=== PATIENT | male | born 1940 | race African-American/Black ===

== ENCOUNTER 2021-12-20 16:51 | Inpatient (IN) | payer OTHER ==
[2021-12-20] MEDS ORDERED: ACETAMINOPHEN 1000 MG/100 ML BAG IVPB ONE (18:25)
[2021-12-20 19:30] LABS: BASO % 0.7 % (0-2.0); EOS % 1.4 % (0-4.5); HEMATOCRIT 23.3 % (35.4-49); HEMOGLOBIN 7.9 GM/dL (11.7-16.9); LYMPH % 13.2 % (8-40); MCH 30.2 pg (25.7-33.7); MCHC 33.8 g/dl (32.0-35.9); MEAN CELL VOLUME 89.4 fl (80-96); MEAN PLT VOLUME 7.7 fl (7.5-11.1); MONO % 15.8 % (3.8-10.2); NEUT % 68.9 % (42.8-82.8); PLATELET COUNT 190 10^3/uL (134-434); RBC 2.61 M/mm3 (4.00-5.60); RDW 16.6 % (11.9-15.9)
[2021-12-20 19:39] LABS: INR 1.18 (0.83-1.09); PROTHROMBIN TIME (PATIENT) 13.6 SEC (9.7-13.0)
[2021-12-20 19:42] LABS: ACTIVATED PTT 37.1 SECONDS (25.2-36.5)
[2021-12-20 19:50] LABS: CALCIUM 8.4 mg/dL (8.5-10.1)
[2021-12-20 19:51] LABS: ALBUMIN 2.4 g/dl (3.4-5.0); BLOOD UREA NITROGEN 18.5 mg/dL (7-18); MAGNESIUM 1.8 mg/dL (1.8-2.4)
[2021-12-20 19:54] LABS: CREATININE 5.2 mg/dL (0.55-1.3); PHOSPHOROUS 2.8 mg/dL (2.5-4.9)
[2021-12-20 19:55] LABS: BILIRUBIN,TOTAL 0.8 mg/dL (0.2-1); TOT PROT 6.4 g/dl (6.4-8.2)
[2021-12-20 20:04] LABS: N-TERMINAL BNP 1759.2 pg/ml (5-450)
[2021-12-20] MEDS ORDERED: ACETAMINOPHEN INJECTION 100 ML IVPB ONE (20:21)
[2021-12-21] MEDS ORDERED: ACETAMINOPHEN 1000 MG/100 ML BAG IVPB PRN (04:38)
[2021-12-21 05:20] VITALS: BMI 24.3
[2021-12-21 11:52] LABS: BASO % 0.7 % (0-2.0); EOS % 5.4 % (0-4.5); HEMATOCRIT 24.9 % (35.4-49); HEMOGLOBIN 8.4 GM/dL (11.7-16.9); LYMPH % 13.5 % (8-40); MCH 30.3 pg (25.7-33.7); MCHC 33.5 g/dl (32.0-35.9); MEAN CELL VOLUME 90.5 fl (80-96); MEAN PLT VOLUME 7.5 fl (7.5-11.1); MONO % 12.6 % (3.8-10.2); NEUT % 67.8 % (42.8-82.8); PLATELET COUNT 224 10^3/uL (134-434); RBC 2.76 M/mm3 (4.00-5.60); WHITE BLOOD COUNT 8.5 K/mm3 (4.0-10.0)
[2021-12-21 12:14] LABS: CALCIUM 8.5 mg/dL (8.5-10.1)
[2021-12-21 12:15] LABS: ALBUMIN 2.5 g/dl (3.4-5.0); BLOOD UREA NITROGEN 24.8 mg/dL (7-18); MAGNESIUM 1.9 mg/dL (1.8-2.4); URIC ACID 3.9 mg/dL (2.6-7.2)
[2021-12-21 12:18] LABS: CREATININE 6.5 mg/dL (0.55-1.3); PHOSPHOROUS 3.3 mg/dL (2.5-4.9)
[2021-12-21 12:20] LABS: BILIRUBIN,TOTAL 0.5 mg/dL (0.2-1)
[2021-12-21] MEDS ORDERED: EPOETIN ALFA-EPBX 10,000 UNIT/ML VIAL SQ ONE (14:39)
[2021-12-21] MEDS: COLCHICINE 0.6 MG CAP PO ONE ×2 (15:05→15:12)
[2021-12-21] MEDS: CALCIUM ACETATE 667 MG CAPSULE (FP) PO SCH ×3 (15:06→22:12)
[2021-12-21] MEDS: DOCUSATE SODIUM 100 MG CAPSULE (FP) PO SCH (22:12)
[2021-12-22 01:16] LABS: EPI CELLS 10 /uL (0-25.1); HYALINE CASTS 0 /uL (0-3.1); PH,URINE 6.5 (5.0-8.0); URINE APPEARANCE CLEAR; URINE BACTERIA 2174 /uL (0-1359); URINE BILIRUBIN NEGATIVE (NEGATIVE); URINE COLOR YELLOW; URINE GLUCOSE (UA) NEGATIVE (NEGATIVE); URINE KETONE NEGATIVE (NEGATIVE); URINE LEUK ESTERASE NEGATIVE (NEGATIVE); URINE NITRITE NEGATIVE (NEGATIVE); URINE PROTEIN 3+ (NEGATIVE); URINE RBC 9 /uL (0-23.9); URINE UROBILINOGEN 0.2 mg/dL (0.2-1.0); URINE WBC 16 /uL (0-25.8)
[2021-12-22] MEDS: CALCIUM ACETATE 667 MG CAPSULE (FP) PO SCH ×3 (08:07→17:19)
[2021-12-22] MEDS: ENOXAPARIN NA (PORCINE) 30 MG/0.3 ML DISP.SYRIN SQ SCH (10:05)
[2021-12-22] MEDS: VITAMIN B COMP W-C 1 EA TABLET (NEPHRO-VITE) PO SCH (10:05)
[2021-12-22] MEDS: CALCITRIOL 0.25 MCG CAPSULE (FP) PO SCH (10:05)
[2021-12-22] MEDS: ATENOLOL 50 MG TABLET (FP) PO SCH (10:06)
[2021-12-22] MEDS ORDERED: SODIUM CHLORIDE 250 ML IV PRN (14:00)
[2021-12-22] MEDS: DOCUSATE SODIUM 100 MG CAPSULE (FP) PO SCH (21:35)
[2021-12-23] MEDS: CALCIUM ACETATE 667 MG CAPSULE (FP) PO SCH ×3 (08:27→17:39)
[2021-12-23] MEDS: ENOXAPARIN NA (PORCINE) 30 MG/0.3 ML DISP.SYRIN SQ SCH (09:12)
[2021-12-23] MEDS: ATENOLOL 50 MG TABLET (FP) PO SCH (09:12)
[2021-12-23] MEDS: VITAMIN B COMP W-C 1 EA TABLET (NEPHRO-VITE) PO SCH (09:12)
[2021-12-23] MEDS: CALCITRIOL 0.25 MCG CAPSULE (FP) PO SCH (09:13)
[2021-12-23] MEDS: DOCUSATE SODIUM 100 MG CAPSULE (FP) PO SCH (21:32)
[2021-12-24] MEDS: CALCIUM ACETATE 667 MG CAPSULE (FP) PO SCH ×3 (09:08→17:58)
[2021-12-24] MEDS: VITAMIN B COMP W-C 1 EA TABLET (NEPHRO-VITE) PO SCH (09:09)
[2021-12-24] MEDS: ATENOLOL 50 MG TABLET (FP) PO SCH (09:09)
[2021-12-24] MEDS: ENOXAPARIN NA (PORCINE) 30 MG/0.3 ML DISP.SYRIN SQ SCH (09:09)
[2021-12-24] MEDS: CALCITRIOL 0.25 MCG CAPSULE (FP) PO SCH (09:09)
[2021-12-24] MEDS ORDERED: SODIUM CHLORIDE 250 ML IV PRN (10:15)
[2021-12-24 13:10] LABS: CALCIUM 8.6 mg/dL (8.5-10.1)
[2021-12-24] MEDS: DOCUSATE SODIUM 100 MG CAPSULE (FP) PO SCH (21:32)
[2021-12-25] MEDS: CALCIUM ACETATE 667 MG CAPSULE (FP) PO SCH ×3 (08:10→17:52)
[2021-12-25] MEDS ORDERED: EPOETIN ALFA-EPBX 10,000 UNIT/ML VIAL SQ ONE (10:00)
[2021-12-25] MEDS: ENOXAPARIN NA (PORCINE) 30 MG/0.3 ML DISP.SYRIN SQ SCH (10:44)
[2021-12-25] MEDS: ATENOLOL 50 MG TABLET (FP) PO SCH (10:45)
[2021-12-25] MEDS: CALCITRIOL 0.25 MCG CAPSULE (FP) PO SCH (10:45)
[2021-12-25] MEDS: VITAMIN B COMP W-C 1 EA TABLET (NEPHRO-VITE) PO SCH (10:45)
[2021-12-25] MEDS: DOCUSATE SODIUM 100 MG CAPSULE (FP) PO SCH (21:45)
[2021-12-26] MEDS: CALCITRIOL 0.25 MCG CAPSULE (FP) PO SCH (10:08)
[2021-12-26] MEDS: ENOXAPARIN NA (PORCINE) 30 MG/0.3 ML DISP.SYRIN SQ SCH (10:08)
[2021-12-26] MEDS: ATENOLOL 50 MG TABLET (FP) PO SCH (10:08)
[2021-12-26] MEDS: VITAMIN B COMP W-C 1 EA TABLET (NEPHRO-VITE) PO SCH (10:08)
[2021-12-26] MEDS: CALCIUM ACETATE 667 MG CAPSULE (FP) PO SCH ×3 (10:08→17:38)
[2021-12-26] MEDS ORDERED: SODIUM CHLORIDE 250 ML IV PRN (18:13)
[2021-12-26] MEDS: DOCUSATE SODIUM 100 MG CAPSULE (FP) PO SCH (21:46)
[2021-12-27] MEDS: CALCIUM ACETATE 667 MG CAPSULE (FP) PO SCH ×3 (08:19→18:59)
[2021-12-27] MEDS: VITAMIN B COMP W-C 1 EA TABLET (NEPHRO-VITE) PO SCH (09:07)
[2021-12-27] MEDS: CALCITRIOL 0.25 MCG CAPSULE (FP) PO SCH (09:07)
[2021-12-27] MEDS: ATENOLOL 50 MG TABLET (FP) PO SCH (09:07)
[2021-12-27] MEDS: ENOXAPARIN NA (PORCINE) 30 MG/0.3 ML DISP.SYRIN SQ SCH (09:07)
[2021-12-27] MEDS ORDERED: EPOETIN ALFA-EPBX 10,000 UNIT/ML VIAL SQ ONE (17:30)
[2021-12-27] MEDS: DOCUSATE SODIUM 100 MG CAPSULE (FP) PO SCH (21:29)
[2021-12-28] MEDS: CALCIUM ACETATE 667 MG CAPSULE (FP) PO SCH ×3 (08:25→16:45)
[2021-12-28] MEDS: ENOXAPARIN NA (PORCINE) 30 MG/0.3 ML DISP.SYRIN SQ SCH (09:22)
[2021-12-28] MEDS: ATENOLOL 50 MG TABLET (FP) PO SCH (09:22)
[2021-12-28] MEDS: VITAMIN B COMP W-C 1 EA TABLET (NEPHRO-VITE) PO SCH (09:22)
[2021-12-28] MEDS: CALCITRIOL 0.25 MCG CAPSULE (FP) PO SCH (09:22)
[2021-12-28 10:38] LABS: BASO % 0.6 % (0-2.0); EOS % 6.1 % (0-4.5); HEMATOCRIT 24.4 % (35.4-49); HEMOGLOBIN 8.2 GM/dL (11.7-16.9); LYMPH % 15.7 % (8-40); MCHC 33.7 g/dl (32.0-35.9); MEAN PLT VOLUME 7.6 fl (7.5-11.1); MONO % 11.9 % (3.8-10.2); NEUT % 65.7 % (42.8-82.8); PLATELET COUNT 249 10^3/uL (134-434); RBC 2.74 M/mm3 (4.00-5.60); RDW 16.1 % (11.9-15.9); WHITE BLOOD COUNT 8.6 K/mm3 (4.0-10.0)
[2021-12-28 11:07] LABS: CALCIUM 8.8 mg/dL (8.5-10.1)
[2021-12-28 11:08] LABS: ALBUMIN 2.2 g/dl (3.4-5.0); BLOOD UREA NITROGEN 19.2 mg/dL (7-18)
[2021-12-28 11:11] LABS: CREATININE 4.7 mg/dL (0.55-1.3)
[2021-12-28 11:12] LABS: BILIRUBIN,TOTAL 0.4 mg/dL (0.2-1); TOT PROT 6.2 g/dl (6.4-8.2)
[2021-12-28] MEDS: DOCUSATE SODIUM 100 MG CAPSULE (FP) PO SCH (21:54)
[2021-12-29] MEDS: CALCIUM ACETATE 667 MG CAPSULE (FP) PO SCH ×3 (08:46→17:59)
[2021-12-29] MEDS: ATENOLOL 50 MG TABLET (FP) PO SCH (10:02)
[2021-12-29] MEDS: CALCITRIOL 0.25 MCG CAPSULE (FP) PO SCH (10:02)
[2021-12-29] MEDS: VITAMIN B COMP W-C 1 EA TABLET (NEPHRO-VITE) PO SCH (10:02)
[2021-12-29] MEDS ORDERED: ENOXAPARIN NA (PORCINE) 30 MG/0.3 ML DISP.SYRIN SQ ONE (12:30)
[2021-12-29] MEDS ORDERED: SODIUM CHLORIDE 250 ML IV PRN (14:15)
[2021-12-29] MEDS ORDERED: EPOETIN ALFA-EPBX 10,000 UNIT/ML VIAL IVPUSH ONE (15:00)
[2021-12-29] MEDS: DOCUSATE SODIUM 100 MG CAPSULE (FP) PO SCH (21:44)
[2021-12-30] MEDS: CALCIUM ACETATE 667 MG CAPSULE (FP) PO SCH ×3 (08:59→17:15)
[2021-12-30] MEDS: ATENOLOL 50 MG TABLET (FP) PO SCH (10:17)
[2021-12-30] MEDS: CALCITRIOL 0.25 MCG CAPSULE (FP) PO SCH (10:17)
[2021-12-30] MEDS: VITAMIN B COMP W-C 1 EA TABLET (NEPHRO-VITE) PO SCH (10:17)
[2021-12-30] MEDS: ENOXAPARIN NA (PORCINE) 30 MG/0.3 ML DISP.SYRIN SQ SCH (10:17)
[2021-12-30] MEDS ORDERED: MINERAL OIL ENEMA 133 ML ENEMA RC ONE (17:15)
[2021-12-30] MEDS: DOCUSATE SODIUM 100 MG CAPSULE (FP) PO SCH (21:39)
[2021-12-30 21:53] VITALS: RESP 20
[2021-12-31 07:58] VITALS: BP 139/52; PULSE 76; TEMP 99.7
[2021-12-31] MEDS: CALCIUM ACETATE 667 MG CAPSULE (FP) PO SCH ×3 (08:28→17:31)
[2021-12-31] MEDS: CALCITRIOL 0.25 MCG CAPSULE (FP) PO SCH (09:18)
[2021-12-31] MEDS: ATENOLOL 50 MG TABLET (FP) PO SCH (09:18)
[2021-12-31] MEDS: VITAMIN B COMP W-C 1 EA TABLET (NEPHRO-VITE) PO SCH (09:18)
[2021-12-31] MEDS: ENOXAPARIN NA (PORCINE) 30 MG/0.3 ML DISP.SYRIN SQ SCH (09:19)
== END 2021-12-31 22:45 | DRG 682 ==
LOC: JER 16:51 → JERBED 19:56 → J5S 12-21 04:33 → J4S 12-22 00:06 → J8W 12-26 14:10
PROVIDERS: ADMIT Internal Medicine; ATTEND Internal Medicine
PROC: 5A1D70Z Performance of Urinary Filtration, Intermittent, Less than 6 Hours Per Day (ICD-10-PCS; principal; 2021-12-21)
DX: I12.0 Hypertensive chronic kidney disease with stage 5 chronic kidney disease or end stage renal disease (principal); N18.6 End stage renal disease; U07.1 COVID-19; M10.9 Gout, unspecified; G62.9 Polyneuropathy, unspecified; Z99.2 Dependence on renal dialysis; D63.1 Anemia in chronic kidney disease; D63.0 Anemia in neoplastic disease; C61 Malignant neoplasm of prostate; F10.10 Alcohol abuse, uncomplicated; K59.00 Constipation, unspecified
CPT/HCPCS: 0241U-QW; 36415; 70450-TC; 71045-TC-FY; 73110-TC-LT-FY; 80048; 80053; 81003; 82272; 82728; 83540; 83550; 83735; 83880; 84100; 84466; 84484; 84550; 85025; 85045; 85610; 85730; 86704; 86705; 86803; 86850; 86900; 86901; 87086; 87340; 87517; 93005; 93010; 95860-TC; 97116-GP; 97163-GP; 99285-25; C9803-CS; Q5106; U0003; U0005